=== PATIENT | male | born 1980 | race African-American/Black ===

== ENCOUNTER 2019-02-21 03:35 | Inpatient (IN) | payer OTHER ==
[~2019-02-21] VITALS: Ht 175.3 cm; Wt 75.8 kg
--- NOTE | 2019-02-21 03:47 | NUR ---
PT TO BED 12 BIB RA FROM [facility] WITH C/O HAVING CHEST PAIN THAT RADIATES TO HIS LEFT LEG. PATIENT STATES THAT HE WAS ON A MISSION TO BLOW SOMEONE'S BRAIN OUT. AAOX4. NO SOB. BREATHING EVENLY AND UNLABORED. CONNECTED TO CARDIAC MONITORING.
--- NOTE | 2019-02-21 04:03 | NUR ---
SEEN AND EXAMINED BY
--- NOTE | 2019-02-21 04:03 | NUR ---
PATIENT STATES THAT HE WANTS TO KILL SOMEONE WITH A GUN THAT OWES HIM MONEY AND ASKS FOR A PSYCHIATRIC EVALUATION.
--- NOTE | 2019-02-21 04:19 | NUR ---
ABALONE DIVER AT BEDSIDE FOR BLOOD DRAW
[2019-02-21 04:32] LABS: BASOPHILS % (AUTO) 0.4 % (0.0-2.0); EOSINOPHILS % (AUTO) 0.4 % (0.0-6.0); HEMATOCRIT 38 % (39-51); HEMOGLOBIN 12.4 g/dL (13.5-17.5); LYMPHOCYTES % (AUTO) 14.7 % (20.0-44.0); MEAN CORPUSCULAR HGB CONC 33 g/dl (31.0-36.0); MEAN CORPUSCULAR VOLUME 86 fL (80-96); MONOCYTES # (AUTO) 0.6 /CMM (0.1-1.30); MONOCYTES % (AUTO) 9.4 % (2.0-12.0); NEUTROPHILS # (AUTO) 5.2 /CMM (1.8-8.9); NEUTROPHILS % (AUTO) 75.1 % (43.0-81.0); PLATELET COUNT (AUTO) 250 /CMM (150-450); RED BLOOD CELL COUNT(AUTO) 4.42 MIL/uL (4.5-6.0); WHITE BLOOD COUNT (AUTO) 6.9 K/uL (4.3-11.0)
[2019-02-21 04:40] LABS: CALCIUM, SERUM 8.9 mg/dL (8.5-10.1); CARBON DIOXIDE 25 mmol/L (21-32); CHLORIDE 102 mmol/L (98-107); CREATININE 1.2 mg/dL (0.6-1.3); GLUCOSE 86 mg/dL (74-106); POTASSIUM 3.7 mmol/L (3.5-5.1); SODIUM SERUM 138 mmol/L (136-145); UREA NITROGEN, BLOOD 12 mg/dL (7-18)
--- NOTE | 2019-02-21 04:45 | NUR ---
PATIENT GIVEN JUG OF WATER TO HELP PRODUCE URINE. PATIENT CURRENTLY UNABLE TO PROVIDE URINE.
[2019-02-21 04:46] LABS: ALANINE AMINOTRANSFERASE 43 U/L (12-78); ALBUMIN 3.5 g/dL (3.4-5.0); ALCOHOL, BLOOD < 3 mg/dL (0-0); ALKALINE PHOSPHATASE 86 U/L (46-116); ASPARTATE AMINOTRANSFERASE 52 U/L (15-37); BILIRUBIN,DIRECT 0.1 mg/dL (0.0-0.2); BILIRUBIN,TOTAL 0.5 mg/dL (0.2-1.0); TOTAL PROTEIN, SERUM 7.3 g/dL (6.4-8.2)
[2019-02-21 04:48] LABS: ACETAMINOPHEN 0 ug/ml (10-30); SALICYLATE 0.9 mg/dL (2.8-20.0)
--- NOTE | 2019-02-21 05:31 | NUR ---
DR. TORRES ON THE PHONE WITH ORTHO DEPUTY FIRE MARSHAL Addendum: 02/21/19 at 0544 by AUSTIN DWAIN AREVALO ORTHO DEPUTY FIRE MARSHAL
--- NOTE | 2019-02-21 05:58 | NUR ---
ASKED PATIENT TO PROVIDE URINE IF POSSIBLE, HOWEVER, PATIENT IS UNABLE TO PROVIDE URINE AT THIS TIME.
--- NOTE | 2019-02-21 06:21 | NUR ---
CALLED NURSING SUP FOR BED
[2019-02-21] MEDS ORDERED: ZOLPIDEM TARTRATE 5 MG TABLET PO PRN (06:30)
[2019-02-21] MEDS ORDERED: Z GUARD REMEDY 2 OZ OINT TP PRN (06:30)
[2019-02-21] MEDS ORDERED: ONDANSETRON HCL/PF 4 MG/2 ML VIAL IVP PRN (06:30)
[2019-02-21] MEDS ORDERED: MAG HYDROX/AL HYDROX/SIMETH 30 ML UDC PO PRN (06:30)
[2019-02-21] MEDS ORDERED: ACETAMINOPHEN 325 MG TABLET PO PRN (06:30)
[2019-02-21] MEDS ORDERED: MAGNESIUM HYDROXIDE 30 ML UDC PO PRN (06:30)
--- NOTE | 2019-02-21 07:06 | NUR ---
PATIENT UNABLE TO PROVIDE URINE AT THIS TIME.
--- NOTE | 2019-02-21 07:42 | NUR ---
REPORT GIVEN TO CECILIA LEBLANC FOR RON.
--- NOTE | 2019-02-21 08:07 | NUR ---
Assumed care report given by Coral ,patient asleep but arousable no ndistress made aware plan of care
--- NOTE | 2019-02-21 08:19 | NUR ---
Patient awake alert non distress patient encourage to use the bathroom declined @ this time
--- NOTE | 2019-02-21 08:25 | NUR ---
Report given to Deanne LEBLANC aware of needs urine and ortho consult
--- NOTE | 2019-02-21 09:10 | NUR ---
surgery teacher notes Pt admitted from ER with dx of L ankle fx. Pt alert and oriented x3. no acute respiratory distress. pt complained of pain 10/10 on L foot. Pt states that he is anxious and depressed, askig for benadryl to slee. VS taken T- 98.6, P- 92, RR- 20, BP- 136/76, O2- 98% on room air. skin assessment donePt insisted to take a shower, assisted pt to the shower. Skin assessment done. picture taken. Hospitalist, Dr. Hammonds aware of new pt and medications. Seen by ortho MARKETING OFFICER Efra. Call light placed within reach. continue with monitoring.
[2019-02-21 09:14] VITALS: BP 136/76
[2019-02-21] MEDS: HYDROCODONE/APAP 5/325MG 1 EACH TABLET PO PRN (10:19)
--- NOTE | 2019-02-21 10:19 | NUR ---
RN NOTES ADMINISTERED NORCO 5/325 1 TAB PO PRN FOR PAIN LEVEL 10/10 ON L FOOT PER PATIENTS REQUEST. VS TAKEN BP 136/76 P 92, RR 20.
--- NOTE | 2019-02-21 12:30 | NUR ---
RN notes PT sleeping at this time after pain meds was given and after lunch. Pt ate 100% of lunch. Provided with urinal. PT has orders for non wt bearing of L foot. Continue monitoring.
--- NOTE | 2019-02-21 18:00 | NUR ---
MS RN Closing notes Pt in bed, awake, alert and oriented x4. No complaints of pain or discomfort. No cardiac or respiratory distress noted. Breathing even and unlabored. Breath sounds clear. Fall precautions in place. Instructed pt to ask for assistance from staff if wanting to get out of bed. pt agreed. NWB precautions on L foot continues. All needs met and attended.
--- NOTE | 2019-02-21 19:20 | NUR ---
RN OPEN NOTES RECEIVED PATIENT AWAKE IN BED. A/OX4. NO SIGNS OF DISTRESS OR DISCOMFORT. BREATHING EVEN AND UNLABORED. IV ACCESS IN RFA, PATENT AND INTACT, NO SIGNS OF REDNESS OR INFILTRATION. BED IN LOW LOCKED POSITION WITH SIDE RAILS X2. CALL LIGHT WITHIN REACH. WILL CONTINUE TO MONITOR.
[2019-02-21] MEDS ORDERED: diphenhydrAMINE HCL 25 MG CAPSULE PO PRN (19:30)
[2019-02-21 20:00] VITALS: BP 118/64
--- NOTE | 2019-02-22 07:01 | NUR ---
RN CLOSING NOTES PATIENT AWAKE IN BED. A/OX4. NO SIGNS OF DISTRESS OR DISCOMFORT. BREATHING EVEN AND UNLABORED. IV ACCESS IN RFA, PATENT AND INTACT, NO SIGNS OF REDNESS OR INFILTRATION. ALL NEEDS MET. NO SIGNIFICANT CHANGES THROUGH THE NIGHT. BED IN LOW LOCKED POSITION WITH SIDE RAILS X2. CALL LIGHT WITHIN REACH. WILL ENDORSE TO AM SHIFT FOR RON.
--- NOTE | 2019-02-22 07:19 | NUR ---
MS RN OPENING NOTES RECEIVED PT AWAKE IN BED IN NO ACUTE SIGNS OF DISTRESS. A/OX4. ABLE TO MAKE NEEDS KNOWN, DENIES PAIN OR ANY DISCOMFORTS AT THIS TIME. ON ROOM AIR, BREATHING EVEN AND UNLABORED. IV ACCESS IN RAC G#20 PATENT AND INTACT, NO SIGNS OF REDNESS OR INFILTRATION AT SITE NOTED. BED IN LOW LOCKED POSITION WITH SIDE RAILS UPX2. CALL LIGHT WITHIN REACH. WILL CONTINUE TO MONITOR.
[2019-02-22 07:21] LABS: BASOPHILS % (AUTO) 0.2 % (0.0-2.0); EOSINOPHILS % (AUTO) 1.5 % (0.0-6.0); HEMATOCRIT 37 % (39-51); HEMOGLOBIN 12.1 g/dL (13.5-17.5); LYMPHOCYTES # (AUTO) 1.5 /CMM (0.8-4.8); LYMPHOCYTES % (AUTO) 29.9 % (20.0-44.0); MEAN CORPUSCULAR HGB CONC 33 g/dl (31.0-36.0); MEAN CORPUSCULAR VOLUME 86 fL (80-96); MONOCYTES # (AUTO) 0.8 /CMM (0.1-1.30); MONOCYTES % (AUTO) 15.6 % (2.0-12.0); NEUTROPHILS # (AUTO) 2.6 /CMM (1.8-8.9); NEUTROPHILS % (AUTO) 52.8 % (43.0-81.0); PLATELET COUNT (AUTO) 251 /CMM (150-450); RED BLOOD CELL COUNT(AUTO) 4.33 MIL/uL (4.5-6.0); WHITE BLOOD COUNT (AUTO) 4.9 K/uL (4.3-11.0)
[2019-02-22 07:47] LABS: CALCIUM, SERUM 8.5 mg/dL (8.5-10.1); CREATININE 1.1 mg/dL (0.6-1.3); MAGNESIUM 1.9 mg/dL (1.8-2.4); PHOSPHORUS 3.7 mg/dL (2.5-4.9); POTASSIUM 3.7 mmol/L (3.5-5.1)
[2019-02-22 08:00] VITALS: BP 123/70
[2019-02-22] MEDS: FLUTICASONE PROPIONATE 16 GM BOTTLE NS SCH (09:22)
--- NOTE | 2019-02-22 14:15 | NUR ---
RN NOTES PT FOR ORIF OF LEFT ANKLE THIS AFTERNOON BY DR OSORIO. CONSENT FOR SURGERY AND ANESTHESIA SIGNED BY PT BUT REFUSED TO SIGN BLOOD TRANSFUSION CONSENT. DR OSORIO MADE AWARE AND SAID IT'S " OK". ALL CONSENTS PLACED IN THE CHART. NPO MAINTAINED. WILL CONTINUE TO MONITOR PT.
--- NOTE | 2019-02-22 15:47 | NUR ---
RN NOTES PATIENT WHEELED VIA HIS BED BY O.R. TRANSPORTER TO OPERATING ROOM JUST NOW FOR ORIF OF LEFT ANKLE BY DR OSORIO.
[2019-02-22 16:00] VITALS: BP 116/61
[2019-02-22] MEDS ORDERED: MIDAZOLAM HCL 2 MG/2ML VIAL ONE (16:24)
[2019-02-22] MEDS ORDERED: FAMOTIDINE/PF INJ 20 MG/2 ML VIAL IV ONE (16:25)
[2019-02-22] MEDS ORDERED: FENTANYL PF 100MCG/2ML AMPUL ONE (16:25)
[2019-02-22] MEDS ORDERED: BUPIVACAINE 0.5 % PF 150 MG/30 ML VIAL ONE (16:36)
[2019-02-22] MEDS ORDERED: GLYCOPYRROLATE 0.2 MG/ML VIAL ONE (16:36)
[2019-02-22] MEDS ORDERED: BACITRACIN 50000 UNITS/VIAL ONE (16:36)
[2019-02-22 18:30] VITALS: BP 125/68
--- NOTE | 2019-02-22 18:37 | NUR ---
RN S/P SURGERY NOTES PT RETURNED TO UNIT @ 1830 FROM SURGERY ACCOMPANIED BY ER NURSE PAT S/P ORIF OF LEFT ANKLE BY DR OSORIO. A/O X4 AND VERBALLY RESPONSIVE. DRESSING ON LEFT LEG C/D/I WITH KNEE HIGH BOOTS IN PLACE. PT ON ROOM AIR, BREATHING EVEN AND UNLABORED. IV ACCESS ON RAC G#20 INTACT, PATENT AND FLUSHES WELL. V/S TAKEN: BP 125/68, P 82, R 18 ,T 98.2F AND SP02 99%. ALL POST OP ORDERS PER MD CARRIED OUT. WILL CONTINUE TO MONITOR.
[2019-02-22 18:45] VITALS: BP 126/72
--- NOTE | 2019-02-22 18:49 | NUR ---
MS RN CLOSING NOTES PATIENT IN BED AWAKE AND RESTING AT MODERATE HIGH BACKREST POSITION. A/O X4. ABLE TO MAKE NEEDS KNOWN. S/P ORIF OF LEFT ANKLE, DRESSING C/D/I WITH KNEE HIGH BOOT IN PLACE AND ELEVATED WITH PILLOW. PT ON ROOM AIR, TOLERATING WELL WITH NO ACUTE RESPIRATORY DISTRESS NOTED. IV ACCESS ON RAC G#20 INTACT AND PATENT, NO S/S OF INFILTRATION NOTED AT SITE. ALL NEEDS AND CARE ATTENDED WELL. BED IN LOW LOCKED POSITION WITH SR UP X2. CALL LIGHT WITHIN EASY REACH OF PT. WILL ENDORSE TO GOLD LEAF GILDER NURSE FOR RON.
--- NOTE | 2019-02-22 19:15 | NUR ---
MS RN OPENING NOTE BEDSIDE REPORT RECIEVED FROM ABDULKADIR LEBLANC. PATIENT IN BED AWAKE AND RESTING IN SEMIFOWLERS POSITION. A/O X4. S/P ORIF OF LEFT ANKLE, DRESSING C/D/I WITH KNEE HIGH BOOT IN PLACE AND ELEVATED WITH PILLOW. PT UNABLE TO MOVE TOES CAP REFILL IS LESS THEN 3 SECONDS PT REPORTS PAIN UPON TOUCH, SENSATION PRESENT. WILL CONT TO MONITOR. PT ON ROOM AIR, TOLERATING WELL WITH NO ACUTE RESPIRATORY DISTRESS NOTED BREATHING EVEN AND UNLABORED. IV ACCESS ON RAC G#20 INTACT AND PATENT, NO S/S OF INFILTRATION NOTED AT SITE. BED IN LOW LOCKED POSITION WITH SR UP X2. CALL LIGHT WITHIN EASY REACH OF PT. WILL CONT TO MONITOR.
[2019-02-22 19:45] VITALS: BP 108/56
[2019-02-22 20:00] VITALS: BP 125/78
[2019-02-22] MEDS: KETOROLAC TROMETHAMINE INJ 30 MG/ML VIAL IM PRN (20:16)
[2019-02-23] MEDS: CEFAZOLIN 1 GM in IV D5W 50 ML IV SCH ×3 (01:21→16:32)
[2019-02-23] MEDS: KETOROLAC TROMETHAMINE INJ 30 MG/ML VIAL IM PRN (04:40)
[2019-02-23] MEDS: HYDROCODONE/APAP 5/325MG 1 EACH TABLET PO PRN ×3 (06:18→17:05)
--- NOTE | 2019-02-23 06:32 | NUR ---
MS RN PM CLOSING NOTE PATIENT IN BED AROUSABLE TO VOICE RESTING IN SEMIFOWLERS POSITION. A/O X4. POST OP DAY ONE OF S/P ORIF OF LEFT ANKLE, DRESSING C/D/I WITH KNEE HIGH BOOT IN PLACE AND ELEVATED WITH PILLOW. PT STILL UNABLE TO MOVE TOES CAP REFILL IS LESS THEN 3 SECONDS PT REPORTS PAIN UPON TOUCH, SENSATION PRESENT APPEARANCE IS DUSKY. PT ON ROOM AIR, TOLERATING WELL WITH NO ACUTE RESPIRATORY DISTRESS NOTED BREATHING EVEN AND UNLABORED. IV ACCESS ON RAC G#20 INTACT AND PATENT, NO S/S OF INFILTRATION NOTED AT SITE. BED IN LOW LOCKED POSITION WITH SR UP X2. CALL LIGHT WITHIN EASY REACH OF PT. PT VERBALIZED UNDERSTANDING TO CALL FOR ASSISTANCE NEEDED.
[2019-02-23 07:08] LABS: BASOPHILS % (AUTO) 0.2 % (0.0-2.0); EOSINOPHILS % (AUTO) 0.8 % (0.0-6.0); HEMATOCRIT 37 % (39-51); HEMOGLOBIN 12.5 g/dL (13.5-17.5); LYMPHOCYTES % (AUTO) 16.5 % (20.0-44.0); MEAN CORPUSCULAR HGB CONC 34 g/dl (31.0-36.0); MEAN CORPUSCULAR VOLUME 86 fL (80-96); MONOCYTES # (AUTO) 0.7 /CMM (0.1-1.30); MONOCYTES % (AUTO) 12.2 % (2.0-12.0); NEUTROPHILS # (AUTO) 4.1 /CMM (1.8-8.9); NEUTROPHILS % (AUTO) 70.3 % (43.0-81.0); PLATELET COUNT (AUTO) 257 /CMM (150-450); RED BLOOD CELL COUNT(AUTO) 4.38 MIL/uL (4.5-6.0); WHITE BLOOD COUNT (AUTO) 5.9 K/uL (4.3-11.0)
[2019-02-23 07:39] LABS: CALCIUM, SERUM 8.4 mg/dL (8.5-10.1); CREATININE 1.3 mg/dL (0.6-1.3)
[2019-02-23 08:00] VITALS: BP 117/73
--- NOTE | 2019-02-23 08:00 | NUR ---
m/s chief credit officer: initial assessment received pt in bed awake, a/ox4. s/p orif left medial malleolus. corbin wrap to lle intact with fracture boot in place. nwb to lle. pt for p.t. eval and tx today. pt aware. no c/o pain at this time. instructed to call for assistance.
[2019-02-23] MEDS: FLUTICASONE PROPIONATE 16 GM BOTTLE NS SCH (08:34)
--- NOTE | 2019-02-23 10:00 | NUR ---
m/s humane officer: ortho f/u seen by mayur rocha (p.aSanto) at this time. pt stable per ortho and to follow up with dr. franks in one to two weeks as scheduled. also mayur instructed him to maintain lle fracture boot at all times. pt verbalized understanding of d'c planning and instructions. Addendum: 02/23/19 at 1213 by ZARINA NAVARRETE LVN pt refused p.t. eval at this time. p.t. will come back this afternoon, pt agreed.
[2019-02-23] MEDS ORDERED: HYDR-3972 PO (10:21)
--- NOTE | 2019-02-23 10:30 | NUR ---
m/s teacher of family and consumer science: md visit seen and examined by berry guillen (acnp) with order to discharge home after evening dose of ancef. pt aware and verbalized understanding. pt request for transportation. called [facility]) to speak to pt.
--- NOTE | 2019-02-23 11:31 | NUR ---
Social service consult requested by GEOVANY Bob for possible homelessness. Pt. is a 39 year old male who was admitted to [facility] for Lt ankle pain. Pt. was playing Basketball and after jumping he landed on his foot and heard a snap followed by immediate pain. He was able to bear weight on the extremity however the pain continued. Pt. had Left ORIF yesterday and will be discharged home later this evening. PABLO met with the pt. bedside. Pt. declined all resources and stated he will be going to his sister Radha's house located at [address] in [place] Pt's emergency contact is his sister Radha . Pt. is requesting transportation to his sister's place. PABLO informed pt. she will notify nursing accountant supervisor and will arrange for taxi transportation. PABLO called nursing accountant supervisor Lisa and requested a taxi voucher for the pt. at time of discharge. PABLO updated pt's RN Fab and JOSE Finnegan regarding pt's discharge plan. No other social service needs are requested at this time. PABLO is available, if needed.
--- NOTE | 2019-02-23 14:00 | NUR ---
m/s translator: notes pt refused physical therapy treatment for the second time per p.t.
--- NOTE | 2019-02-23 17:05 | NUR ---
m/s vessel builder: notes c/o 10/10 left ankle pain, medicated with norco 1 tab po as ordered. pt for d'c home today. will continue to monitor.
--- NOTE | 2019-02-23 18:00 | NUR ---
m/s chest pain coordinator: notes provided clothes for pt and ordered a walker for the pt. pt feels better. no c/o pain at this time. will continue to monitor.
--- NOTE | 2019-02-23 18:15 | NUR ---
m/s quarter folder: notes discharge instructions with prescription for norco given to pt and verbalized understanding. h/l removed with tip intact. pt wants to get dress by himself. instructed to call for assistance.
--- NOTE | 2019-02-23 18:53 | NUR ---
m/s africana studies professor: discharged discharged home via taxi with voucher in stable condition with walker.
== END 2019-02-23 19:00 | disposition home or self-care (01) | DRG 313 ==
LOC: ER 03:36 → EDBD 03:36 → MED 07:34
PROVIDERS: ADMIT Family Medicine; ATTEND Registered Nurse
PROC: 0QSH04Z Reposition Left Tibia with Internal Fixation Device, Open Approach (ICD-10-PCS; principal; 2019-02-22)
DX: S82.52XA Displaced fracture of medial malleolus of left tibia, initial encounter for closed fracture (principal); D64.9 Anemia, unspecified; Y92.89 Other specified places as the place of occurrence of the external cause; Y93.67 Activity, basketball; J30.2 Other seasonal allergic rhinitis
CPT/HCPCS: 36415; 73600-TC; 73610-TC; 80048-TC; 80061-TC; 80076-TC; 83735-TC; 84100-TC; 84484-TC; 85025-TC; 87081-TC; G0378; G0480; J0690; J1885; J2250; J2405; J2704; J2710; J2765; J3010; J3490; J7030; J7060; Q0163

== ENCOUNTER 2022-11-05 06:54 | Emergency (ER) | payer OTHER ==
[~2022-11-05] VITALS: Ht 177.8 cm; Wt 81.6 kg
[~2022-11-05 06:54] MED LIST: HYDR-3972 PO
[2022-11-05 07:00] VITALS: BP 118/78; TEMP 97.7
[2022-11-05] MEDS ORDERED: LORAZEPAM 1 MG TABLET ONE (07:19)
[2022-11-05] MEDS ORDERED: diphenhydrAMINE HCL 50 MG CAPSULE ONE (07:20)
[2022-11-05] MEDS ORDERED: LORAZEPAM 1 MG TABLET PO ONE (07:30)
[2022-11-05] MEDS ORDERED: diphenhydrAMINE HCL 25 MG CAPSULE PO ONE (07:30)
[2022-11-05] MEDS ORDERED: LORAZEPAM INJ 2 MG/ML VIAL IM ONE (08:30)
[2022-11-05] MEDS ORDERED: diphenhydrAMINE HCL 50 MG/ML VIAL IM ONE (08:30)
== END 2022-11-05 09:04 ==
LOC: ER 06:55
DX: Z02.89 Encounter for other administrative examinations (principal); Z79.899 Other long term (current) drug therapy; Z59.00 Homelessness unspecified
CPT/HCPCS: 99283; Q0163